=== PATIENT | female | born 1970 | race Caucasian/White ===

== ENCOUNTER 2019-06-03 01:25 | Emergency (ER) | payer SELFPAY ==
[~2019-06-03] VITALS: Ht 160 cm; Wt 63.5 kg
[2019-06-03 01:30] VITALS: BP_SYST 107
--- NOTE | 2019-06-03 01:30 | NUR ---
Patient triaged and placed in waiting room per patient request. VSS and patient appears in no acute distress at this time. Awaiting MSE.
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
--- NOTE | 2019-06-03 02:31 | NUR ---
Pt ambulatory to bed 8 for evaluation
--- NOTE | 2019-06-03 02:32 | NUR ---
ER at bedside examining patient.
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
--- NOTE | 2019-06-03 02:35 | NUR ---
Patient left room 8 without being examined by physician. Patient states she will wait in the lobby for the bus later in morning.
== END 2019-06-03 02:35 | disposition left against medical advice (07) ==
LOC: SED 01:25
DX: M79.18 Myalgia, other site (principal); Z53.21 Procedure and treatment not carried out due to patient leaving prior to being seen by health care provider